=== PATIENT | male | born 1960 | race Caucasian/White ===

== ENCOUNTER → 2017-08-12 | Outpatient (CLI) | payer BC | END | disposition home or self-care (01) | LOC: LABWHC1 11:37 | PROVIDERS: ATTEND Psychiatry & Neurology Neurology | DX: G40.209 Localization-related (focal) (partial) symptomatic epilepsy and epileptic syndromes with complex partial seizures, not intractable, without status epilepticus (principal) | CPT/HCPCS: 36415; 80185 ==

== ENCOUNTER → 2018-03-03 | Outpatient (CLI) | payer BC | LOC: LABWHC1 09:19 | PROVIDERS: ATTEND Psychiatry & Neurology Neurology | DX: G40.909 Epilepsy, unspecified, not intractable, without status epilepticus (principal) | CPT/HCPCS: 36415; 80185; 82306 ==

== ENCOUNTER → 2018-07-28 | Outpatient (CLI) | payer BC | END | disposition home or self-care (01) | LOC: LABWHC1 09:02 | PROVIDERS: ATTEND Psychiatry & Neurology Neurology | DX: G40.209 Localization-related (focal) (partial) symptomatic epilepsy and epileptic syndromes with complex partial seizures, not intractable, without status epilepticus (principal) | CPT/HCPCS: 36415; 80185 ==

== ENCOUNTER → 2020-08-06 | Outpatient (CLI) | payer BC | END | disposition home or self-care (01) | LOC: LABWHC1 07:47 | PROVIDERS: ATTEND Psychiatry & Neurology Neurology | DX: G40.209 Localization-related (focal) (partial) symptomatic epilepsy and epileptic syndromes with complex partial seizures, not intractable, without status epilepticus (principal) | CPT/HCPCS: 36415; 80185 ==

== ENCOUNTER → 2021-06-23 | Outpatient (CLI) | payer BC | END | disposition home or self-care (01) | LOC: LABWHC1 09:16 | PROVIDERS: ATTEND Psychiatry & Neurology Neurology | DX: G40.209 Localization-related (focal) (partial) symptomatic epilepsy and epileptic syndromes with complex partial seizures, not intractable, without status epilepticus (principal) | CPT/HCPCS: 36415; 80185 ==

== ENCOUNTER 2021-09-08 12:59 | Emergency (ER) | payer BC ==
[2021-09-08] MEDS ORDERED: SODIUM CHLORIDE 0.9% 1,000 ML IV STA (13:45)
--- NOTE | 2021-09-08 13:49 | ED ---
General Adult HPI - General Chief complaint: Dizziness Stated complaint: Dizziness Time Seen by Provider: 09/08/21 13:17 Source: patient, RN notes reviewed, old records reviewed Mode of arrival: ambulatory Limitations: no limitations - History of Present Illness Initial comments: 61-year-old male presenting for evaluation of what he reports as dizziness which has been present for the past 2 days. This began with wakening on Monday morning. He denied limb weakness or numbness. Denied cough or fever. He states he has been eating and drinking well. He was seen by his primary care physician and sent to the emergency department for evaluation. He states that his head felt heavy and that his balance was off. - Related Data Home Medications Medication Instructions Recorded Confirmed Fenofibrate 54 mg PO DAILY 08/28/13 09/08/21 Phenytoin Sodium Extended 400 mg PO DAILY 08/28/13 09/08/21 [Dilantin] Ginkgo Biloba [place] Extract [Ginkgo] 60 mg PO DAILY 05/07/15 09/08/21 Tamsulosin HCl [Flomax] 0.4 mg PO DAILY 05/07/15 09/08/21 Atorvastatin [Lipitor] 20 mg PO HS 09/08/21 09/08/21 Cholecalciferol (Vitamin D3) 125 mcg PO DAILY 09/08/21 09/08/21 [Vitamin D3 (125 MCG = 5,000 IU)] Phenytoin Chew [Dilantin Chew] 50 mg PO DAILY 09/08/21 09/08/21 Allergies Allergy/AdvReac Type Severity Reaction Status Date / Time Penicillins Allergy Rash/Hives Verified 09/08/21 14:35 Review of Systems ROS Statement: Those systems with pertinent positive or pertinent negative responses have been documented in the HPI. ROS Other: All systems not noted in ROS Statement are negative. Past Medical History Past Medical History: Cancer, Hyperlipidemia, Prostate Disorder, Seizure Disorder Additional Past Medical History / Comment(s): bladder cancer, last seizure 25 yrs ago, macular degeneration History of Any Multi-Drug Resistant Organisms: None Reported Past Surgical History: Adenoidectomy, Orthopedic Surgery, Tonsillectomy Additional Past Surgical History / Comment(s): 1980 left shoulder surgery, 2012 bladder surgery d/t CA Past Anesthesia/Blood Transfusion Reactions: No Reported Reaction Past Psychological History: No Psychological Hx Reported Smoking Status: Former smoker Past Alcohol Use History: Occasional Past Drug Use History: None Reported - Past Family History Father Family Medical History: Congestive Heart Failure (CHF), COPD, Myocardial Infarction ([place]) Additional Family Medical History / Comment(s): smoker Mother Family Medical History: Cancer Additional Family Medical History / Comment(s): bladder CA & subsequent suspension General Exam Limitations: no limitations General appearance: alert, in no apparent distress Head exam: Present: atraumatic, normocephalic Eye exam: Present: normal appearance, PERRL ENT exam: Present: mucous membranes dry Neck exam: Present: normal inspection. Absent: tenderness, meningismus Respiratory exam: Present: normal lung sounds bilaterally. Absent: respiratory distress, wheezes Cardiovascular Exam: Present: regular rate, normal rhythm GI/Abdominal exam: Present: soft. Absent: distended, tenderness, guarding, rebound Extremities exam: Present: normal inspection, normal capillary refill. Absent: pedal edema, calf tenderness Neurological exam: Present: alert, oriented X3, CN II-XII intact, other (No ataxia, normal [id number] bilaterally, normal flld-[id number]-lhgd bilaterally, normal strength throughout). Absent: motor sensory deficit Psychiatric exam: Present: normal affect, normal mood Skin exam: Present: warm, dry, intact. 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 ] Respiratory 18 18 18 Rate Blood Pressure 137/93 132/85 Blood Pressure [Right Radial Artery Sitting] Blood Pressure [Right Radial Artery Standing ] Blood Pressure [Right Radial Artery Supine] O2 Sat by Pulse 97 Oximetry 09/08/21 09/08/21 09/08/21 14:26 14:27 14:28 Temperature Pulse Rate Pulse Rate [ 80 85 84 Pony Ride Operator ] Respiratory 18 18 18 Rate Blood Pressure Blood Pressure 144/97 [Right Radial Artery Sitting] Blood Pressure 130/90 [Right Radial Artery Standing ] Blood Pressure 137/85 [Right Radial Artery Supine] O2 Sat by Pulse Oximetry EKG Findings - EKG Comments: EKG Findings:: EKG: Sinus rhythm, rate of 85, PA interval 200, QRS duration 101, QTC 434, no ST segment elevation. Medical Decision Making - Medical Decision Making 61-year-old male presents with chief complaint of dizziness and lightheadedness. Studies seemed to at least in part be related to standing. He is well- appearing with stable vitals. He has dry mucous membranes. He has a completely normal neurologic exam including normal finger to nose bilaterally, negative Rom loredo, NIH of 0 with normal strength throughout. His workup is essentially unremarkable, normal CBC, normal CMP, negative head CT. We did discuss the possibilities at length and ultimately agreed upon discharge with strict return parameters. He should follow-up with his primary care physician. He is instructed to return immediately to the emergency department with the development of any focal weakness or numbness. Headache. Chest pain. - Lab Data Result diagrams: 09/08/21 14:11 09/08/21 14:11 Lab Results 09/08/21 09/08/21 09/08/21 Range/Units 14:11 14:11 14:11 WBC 4.3 (3.8-10.6) k/uL RBC 4.83 (4.30-5.90) m/uL Hgb 15.7 (13.0-17.5) gm/dL Hct 45.3 (39.0-53.0) % MCV 93.7 (80.0-100.0) fL MCH 32.5 (25.0-35.0) pg MCHC 34.7 (31.0-37.0) g/dL RDW 13.5 (11.5-15.5) % Plt Count 167 (150-450) k/uL MPV 8.0 Neutrophils % 58 % Lymphocytes % 24 % Monocytes % 8 % Eosinophils % 5 % Basophils % 1 % Neutrophils # 2.5 (1.3-7.7) k/uL Lymphocytes # 1.0 (1.0-4.8) k/uL Monocytes # 0.3 (0-1.0) k/uL Eosinophils # 0.2 (0-0.7) k/uL Basophils # 0.1 (0-0.2) k/uL PT 11.0 (9.0-12.0) sec INR 1.0 (<1.2) APTT 25.2 (22.0-30.0) sec Sodium (137-145) mmol/L Potassium (3.5-5.1) mmol/L Chloride (98-107) mmol/L Carbon Dioxide (22-30) mmol/L Anion Gap mmol/L BUN (9-20) mg/dL Creatinine (0.66-1.25) mg/dL Est GFR (CKD-EPI)AfAm (>60 ml/min/1.73 sqM) Est GFR (CKD-EPI)NonAf (>60 ml/min/1.73 sqM) Glucose (74-99) mg/dL Calcium (8.4-10.2) mg/dL Magnesium (1.6-2.3) mg/dL Total Bilirubin (0.2-1.3) mg/dL AST (17-59) U/L ALT (4-49) U/L Alkaline Phosphatase (38-126) U/L Troponin I (0.000-0.034) ng/mL Total Protein (6.3-8.2) g/dL Albumin (3.5-5.0) g/dL Urine Color Light Yellow Urine Appearance Clear (Clear) Urine pH 5.5 (5.0-8.0) Ur Specific [place] 1.013 (1.001-1.035) Urine Protein Negative (Negative) Urine Glucose (UA) Negative (Negative) Urine Ketones Negative (Negative) Urine Blood Negative (Negative) Urine Nitrite Negative (Negative) Urine Bilirubin Negative (Negative) Urine Urobilinogen <2.0 (<2.0) mg/dL Ur Leukocyte Esterase Negative (Negative) 09/08/21 09/08/21 Range/Units 14:11 14:11 WBC (3.8-10.6) k/uL RBC (4.30-5.90) m/uL Hgb (13.0-17.5) gm/dL Hct (39.0-53.0) % MCV (80.0-100.0) fL MCH (25.0-35.0) pg MCHC (31.0-37.0) g/dL RDW (11.5-15.5) % Plt Count (150-450) k/uL MPV Neutrophils % % Lymphocytes % % Monocytes % % Eosinophils % % Basophils % % Neutrophils # (1.3-7.7) k/uL Lymphocytes # (1.0-4.8) k/uL Monocytes # (0-1.0) k/uL Eosinophils # (0-0.7) k/uL Basophils # (0-0.2) k/uL PT (9.0-12.0) sec INR (<1.2) APTT (22.0-30.0) sec Sodium 136 L (137-145) mmol/L Potassium 4.6 (3.5-5.1) mmol/L Chloride 102 (98-107) mmol/L Carbon Dioxide 26 (22-30) mmol/L Anion Gap 8 mmol/L BUN 28 H (9-20) mg/dL Creatinine 0.88 (0.66-1.25) mg/dL Est GFR (CKD-EPI)AfAm >90 (>60 ml/min/1.73 sqM) Est GFR (CKD-EPI)NonAf >90 (>60 ml/min/1.73 sqM) Glucose 96 (74-99) mg/dL Calcium 9.4 (8.4-10.2) mg/dL Magnesium 2.1 (1.6-2.3) mg/dL Total Bilirubin 0.4 (0.2-1.3) mg/dL AST 31 (17-59) U/L ALT 25 (4-49) U/L Alkaline Phosphatase 82 (38-126) U/L Troponin I <0.012 (0.000-0.034) ng/mL Total Protein 7.4 (6.3-8.2) g/dL Albumin 4.6 (3.5-5.0) g/dL Urine Color Urine Appearance (Clear) Urine pH (5.0-8.0) Ur Specific [place]ony (1.001-1.035) Urine Protein (Negative) Urine Glucose (UA) (Negative) Urine Ketones (Negative) Urine Blood (Negative) Urine Nitrite (Negative) Urine Bilirubin (Negative) Urine Urobilinogen (<2.0) mg/dL Ur Leukocyte Esterase (Negative) Disposition Clinical Impression: Dizziness Disposition: HOME SELF-CARE Condition: Good Instructions (If sedation given, give patient instructions): Dizziness (ED) Is patient prescribed a controlled substance at d/c from ED?: No Referrals: Елена Morales MD [Primary Care Provider] - 1-2 days Time of Disposition: 16:13
[2021-09-08 14:29] LABS: Basophils # (A) 0.1 k/uL (0-0.2); Basophils % (A) 1 %; Eosinophils # (A) 0.2 k/uL (0-0.7); Eosinophils % (A) 5 %; HCT 45.3 % (39.0-53.0); HGB 15.7 gm/dL (13.0-17.5); Lymphocytes % (A) 24 %; MCH 32.5 pg (25.0-35.0); MCHC 34.7 g/dL (31.0-37.0); MCV 93.7 fL (80.0-100.0); Monocytes # (A) 0.3 k/uL (0-1.0); Monocytes % (A) 8 %; Neutrophils # (A) 2.5 k/uL (1.3-7.7); Neutrophils % (A) 58 %; Platelet Count 167 k/uL (150-450); RBC 4.83 m/uL (4.30-5.90); RDW 13.5 % (11.5-15.5); WBC 4.3 k/uL (3.8-10.6)
[2021-09-08 14:38] LABS: ALT 25 U/L (4-49); AST 31 U/L (17-59); African American GFR (CKD) >90 (>60 ml/min/1.73 sqM); Albumin 4.6 g/dL (3.5-5.0); Alkaline Phosphatase 82 U/L (38-126); Anion Gap 8 mmol/L; Blood Urea Nitrogen 28 mg/dL (9-20); Calcium 9.4 mg/dL (8.4-10.2); Carbon Dioxide 26 mmol/L (22-30); Chloride 102 mmol/L (98-107); Glucose 96 mg/dL (74-99); Magnesium 2.1 mg/dL (1.6-2.3); Non-African American GFR(CKD) >90 (>60 ml/min/1.73 sqM); Sodium 136 mmol/L (137-145); Total Bilirubin 0.4 mg/dL (0.2-1.3); Total Protein 7.4 g/dL (6.3-8.2)
[2021-09-08 14:41] LABS: Partial Thromboplastin Time 25.2 sec (22.0-30.0)
[2021-09-08 14:52] LABS: Potassium 4.6 mmol/L (3.5-5.1)
--- NOTE | 2021-09-08 15:57 | CT ---
EXAMINATION TYPE: CT brain wo con DATE OF EXAM: 09/08/2021 COMPARISON: Unavailable HISTORY: Weakness CT DLP: 1099.4 mGycm Automated exposure control for dose reduction was used. TECHNIQUE: CT scan of the brain is performed without IV contrast administration. FINDINGS: No acute intracranial hemorrhage. No gross acute cortical infarct. No midline shift, herniation or ve ntriculomegaly. Unremarkable avery-white matter differentiation, basal cisterns, sella and CP angles. No gross space-o ccupying lesion, vasogenic edema or mass effect. Unremarkable orbits. Left maxillary sinus polyp/retention cyst. Clear mastoid air cells. Unremarkable calvarial bones. IMPRESSION: No acute intracranial abnormality or gross space-occupying lesion by this nonenhanced CT scan.
[2021-09-08 16:17] LABS: Appearance,Urine Clear (Clear); Bilirubin,Urine Negative (Negative); Blood,Urine Negative (Negative); Color,Urine Light Yellow; Glucose,Urine (UA) Negative (Negative); Ketones,Urine Negative (Negative); Leukocyte Esterase,Urine Negative (Negative); Nitrite,Urine Negative (Negative); PH, Urine 5.5 (5.0-8.0); Protein,Urine Negative (Negative); Specific Gravity,Urine 1.013 (1.001-1.035); Urobilinogen,Urine <2.0 mg/dL (<2.0)
[2021-09-08 16:55] VITALS: BP 143/84; PULSE 78; RESP 17; TEMP 97.1
== END 2021-09-08 16:53 | disposition home or self-care (01) ==
LOC: EC 12:59
DX: R42 Dizziness and giddiness (principal); E78.5 Hyperlipidemia, unspecified; Z87.891 Personal history of nicotine dependence; Z79.899 Other long term (current) drug therapy; Z88.0 Allergy status to penicillin
CPT/HCPCS: 36415; 70450; 80053; 81003; 83735; 84484; 85025; 85610; 85730; 93005; 96360; 96361; 99284

== ENCOUNTER → 2021-09-10 | Outpatient (CLI) | payer BC | END | disposition home or self-care (01) | LOC: LABWHC1 14:25 | PROVIDERS: ATTEND Psychiatry & Neurology Neurology | DX: G40.209 Localization-related (focal) (partial) symptomatic epilepsy and epileptic syndromes with complex partial seizures, not intractable, without status epilepticus (principal) | CPT/HCPCS: 36415; 80185 ==

== ENCOUNTER → 2021-09-16 | Outpatient (CLI) | payer BC | END | disposition home or self-care (01) | LOC: LABWHC1 09:07 | PROVIDERS: ATTEND Psychiatry & Neurology Neurology | DX: G40.209 Localization-related (focal) (partial) symptomatic epilepsy and epileptic syndromes with complex partial seizures, not intractable, without status epilepticus (principal) | CPT/HCPCS: 36415; 80185 ==

== ENCOUNTER → 2021-10-02 | Outpatient (CLI) | payer BC | END | disposition home or self-care (01) | LOC: LABWHC1 09:46 | PROVIDERS: ATTEND Psychiatry & Neurology Neurology | DX: G40.209 Localization-related (focal) (partial) symptomatic epilepsy and epileptic syndromes with complex partial seizures, not intractable, without status epilepticus (principal) | CPT/HCPCS: 36415; 80185 ==

== ENCOUNTER → 2022-01-08 | Outpatient (CLI) | payer BC ==
[2022-01-08 11:26] LABS: Phenytoin (Dilantin) 12.3 ug/mL
[2022-01-09 00:14] LABS: Prostate Specific Antigen 0.7 ng/mL (0.00-4.50)
== END | disposition home or self-care (01) ==
LOC: LABWHC1 09:57
PROVIDERS: ATTEND Urology
DX: G40.209 Localization-related (focal) (partial) symptomatic epilepsy and epileptic syndromes with complex partial seizures, not intractable, without status epilepticus (principal); R35.0 Frequency of micturition
CPT/HCPCS: 36415; 80185; 84153

== ENCOUNTER 2023-01-10 13:02 | Day surgery (SDC) | payer BC ==
[2023-01-06 10:08] VITALS: BMI 25.8
[~2023-01-10 13:02] MED LIST: LACTATED RINGERS 1,000 ML IV SCH; LIDOCAINE 1% (10MG/ML) FOR IV START INTRADERMA PRN
[2023-01-10] MEDS ORDERED: LACTATED RINGERS 1,000 ML IV ONE (13:19)
[2023-01-10] MEDS ORDERED: LIDOCAINE 1% INJ 10MG/ML (20 ML MDV) ONE (13:44)
[2023-01-10] MEDS ORDERED: PROPOFOL 10 MG/ML 20 ML VIAL IV ONE (13:44)
[2023-01-10 13:45] VITALS: TEMP 97.2
--- NOTE | 2023-01-10 13:45 | P.GSHP ---
History of Present Illness H&P Date: 01/10/23 Chief Complaint: Dysphagia 62-year-old male here for EGD. Patient with complaints of dysphagia. Seems to be both liquids and solids. Mild heartburn. Past Medical History Past Medical History: Cancer, Hyperlipidemia, Prostate Disorder, Seizure Disorder Additional Past Medical History / Comment(s): bladder cancer, 2013 last seizure 35 yrs ago, macular degeneration right eye History of Any Multi-Drug Resistant Organisms: None Reported Past Surgical History: Adenoidectomy, Orthopedic Surgery, Tonsillectomy Additional Past Surgical History / Comment(s): 1980 left shoulder surgery and another shoulder surgery 07/2022, 2012 bladder surgery d/t CA cataracts removed apr 1404/2022 Past Anesthesia/Blood Transfusion Reactions: No Reported Reaction Additional Past Anesthesia/Blood Transfusion Reaction / Comment(s): no blood transfusion Smoking Status: Former smoker - Past Family History Father Family Medical History: Congestive Heart Failure (CHF), COPD, Myocardial Infarction ([place]) Additional Family Medical History / Comment(s): smoker Mother Family Medical History: Cancer Additional Family Medical History / Comment(s): bladder CA & subsequent suspension Medications and Allergies Home Medications Medication Instructions Recorded Confirmed Type Fenofibrate 54 mg PO DAILY 08/28/13 01/06/23 History Phenytoin Sodium Extended 400 mg PO DAILY 08/28/13 01/06/23 History [Dilantin] Ginkgo Biloba [place] Extract [Ginkgo] 60 mg PO DAILY 05/07/15 01/06/23 History Tamsulosin HCl [Flomax] 0.4 mg PO DAILY 05/07/15 01/06/23 History Atorvastatin [Lipitor] 20 mg PO HS 09/08/21 01/06/23 History Cholecalciferol (Vitamin D3) 125 mcg PO DAILY 09/08/21 01/06/23 History [Vitamin D3 (125 MCG = 5,000 IU)] Omeprazole 40 mg PO BID 01/06/23 01/06/23 History Allergies Allergy/AdvReac Type Severity Reaction Status Date / Time Penicillins Allergy Rash/Hives Verified 01/06/23 09:56 Surgical - Exam Vital Signs Temp Pulse Resp BP Pulse Ox 97.2 F L 78 18 127/78 100 01/10/23 13:29 01/10/23 13:29 01/10/23 13:29 01/10/23 13:29 01/10/23 13:29 Physical exam: General: Well-developed, well-nourished HEENT: Normocephalic, sclerae nonicteric Abdomen: Nontender, nondistended Extremities: No edema Neuro: Alert and oriented Assessment and Plan (1) Dysphagia Narrative/Plan: Will proceed with EGD with biopsy and possible dilation Current Visit: Yes Status: Acute Code(s): R13.10 - DYSPHAGIA, UNSPECIFIED SNOMED Code(s): 11521474
--- NOTE | 2023-01-10 14:00 | P.PCN ---
Date of Procedure: 01/10/23 Procedure(s) Performed: Preoperative Dx: Dysphagia Postoperative Dx: Esophageal mass Procedure: EGD with Bx Anesthesia: Sedation Endoscopist: Dr. Aldridge Specimens: Antrum, esophageal mass Endoscopic Procedure: The patient was on the endoscopy table in the left decubitus position. The Olympus gastroscope was inserted into the oropharynx and passed under direct visualization to the mid esophagus. With are normal size gastroscope a mass was encountered starting around 32 cm. This was ulcerated and causing luminal narrowing. This was circumferential. This was friable with some bleeding noted. There was some particulate matter proximal to the mass. We switched then to the smaller gastroscope measuring 9.2 mm. We were able to advance into the stomach and duodenum at that time. From that point the scope was slowly withdrawn inspecting all surfaces carefully. There were no neoplastic inflammatory or polypoid lesions throughout the duodenum. The pylorus was widely patent. The stomach was carefully inspected. There was minimal gastritis. A biopsy of the antrum took place to rule out H. pylori. Retroflexion revealed a mass extending 1 cm beyond the GE junction. Multiple biopsies of the mass took place. Again this is thought to measure approximately 8-9 cm in length. The proximal one half of the esophagus appeared normal. The patient was then taken to the recovery room in stable condition per anesthesia guidelines. Recommendations: Await biopsy results. Will discuss findings with patient. We'll make referral to oncology.
[2023-01-10 14:33] VITALS: BP 121/77; PULSE 72; RESP 20
== END 2023-01-10 14:59 | disposition home or self-care (01) ==
LOC: ORWHC2ENDO 13:02
PROVIDERS: ATTEND Surgery
DX: K22.9 Disease of esophagus, unspecified (principal); E78.5 Hyperlipidemia, unspecified; K21.9 Gastro-esophageal reflux disease without esophagitis; G40.89 Other seizures; Z98.890 Other specified postprocedural states; Z87.891 Personal history of nicotine dependence; Z88.0 Allergy status to penicillin; Z79.899 Other long term (current) drug therapy; Z79.83 Long term (current) use of bisphosphonates
CPT/HCPCS: 88305; 88342; 43239; J2001; J2704

== ENCOUNTER → 2023-01-19 | Outpatient (CLI) | payer BC ==
--- NOTE | 2023-01-19 21:51 | CT ---
EXAMINATION TYPE: CT ChestAbdPelvis w con DATE OF EXAM: 01/19/2023 INDICATION: esophageal mass hx of bladder CA COMPARISON: 07/28/2013 CT DLP: 1580 mGycm CONTRAST: Performed with Oral Contrast and with IV Contrast, patient injected with 100 mL of Isovue 300. TECHNIQUE: Axial images at 5 mm thick sections. Reconstructed images in the coronal plane. Delayed images through the kidneys. FINDINGS: CT CHEST: Portion of the thyroid visualized is normal. Esophagus is dilated and has an air-fluid level. There is diffuse thickening at the distal esophagus in the thorax extending into the gastroesophageal junction compatible with the patient's reported eso phageal cancer. No suspicious lung nodules or focal infiltrates are present. No enlarged mediastinal or hilar adenopathy is evident. Shotty lymphadenopathy is present. The ascending aorta diameter at the level of the main pulmonary artery is 3.3 cm. The main pulmonary artery diameter at the bifurcation is 2.[address] ABDOMEN: Liver: Hepatic cyst is at the superior medial right lobe liver measuring 1.3 cm and 6 Hounsfield unit s. There is a subtle hypodensity within the periphery of the right lobe liver, series 3 image 60. Thi s is indeterminate. Pair of cysts may be at the inferior right lobe liver. Spleen: Normal Pancreas: Normal Adrenal glands: The adrenal glands are normal. Gallbladder: Decompressed Kidneys: No masses are evident. No hydronephrosis is present. There is a 4.1 cm cyst on posterior l ateral left mid kidney. 0.8 cm cortical renal cysts on the posterior right mid kidney Delayed images were obtained through the kidneys, which remain unremarkable. Aorta: Vascular calcification is within the aorta. Inferior vena cava: Normal. CT PELVIS: Loops of bowel within the abdomen and pelvis are normal. There are loops of bowel which are incom pletely distended or lack oral contrast limiting their evaluation. Appendix: Normal as visualized. Urinary bladder: Appears normal. Patient's reported bladder neoplasm not clearly identified on the ba sis of this examination. Genitourinary structures: Prostate is slightly prominent. Osseous structures: No suspicious lytic or sclerotic lesions. IMPRESSION: 1. Marked esophageal prominence at the distal esophagus compatible with the patient's reported neopla sm. 2. Patient's reported urinary bladder cancer not identified on the basis of this examination. 3. No suspicious abnormality to suggest metastatic disease. There are some small hypodensities within the liver, metastatic disease is not entirely excluded. Hepatic cysts however are evident within the liver in addition to the small indeterminate hypodense areas. 4. Renal cysts.
== END | disposition home or self-care (01) ==
LOC: RADCTMAIN 11:42
PROVIDERS: ATTEND Surgery
DX: D13.0 Benign neoplasm of esophagus (principal); K76.89 Other specified diseases of liver; N28.1 Cyst of kidney, acquired; Z85.51 Personal history of malignant neoplasm of bladder
CPT/HCPCS: 71260; 74177; Q9967

== ENCOUNTER → 2023-01-26 | Outpatient (CLI) | payer BC ==
--- NOTE | 2023-01-28 19:26 | PE ---
EXAMINATION TYPE: PET CT fusion skull to thigh DATE OF EXAM: 01/26/2023 CLINICAL INDICATION:Male, 62 years old with history of C15.5 ESOPHAGEAL CANCER; TECHNIQUE: Following the intravenous administration of 10.6 mCi of F-18 FDG, whole body images are performed from the skull base to the midthigh. Images are reviewed on the computer in the coronal, a xial, and sagittal planes. Reconstructed rotating images are created on independent workstation and reviewed on the computer. A non-contrast CT is performed in conjunction with the PET scan. Glucose level 80 mg/dL CT DLP: 445 mGycm, Automated exposure control for dose reduction was used. COMPARISON: CT 01/19/2023, 07/28/2013., PET/CT None, FINDINGS: Mediastinal SUV mean is 1.7. Hepatic parenchyma SUV mean is 2.8. SKULL BASE AND NECK: No suspicious radiotracer activity. CHEST, MEDIASTINUM, AND HILAR REGION: No suspicious radiotracer activity. ABDOMEN AND PELVIS: * Left pulmonary hilum lymph node max SUV 4.1. Measurements are difficult without IV contrast. * Distal esophageal wall thickening with extension into the gastric wall max SUV 18.7. Measurements of wall thickening are difficult given lack of IV and oral contrast. * Gastrohepatic ligament lymph node max SUV 9.8 measuring 17 mm. MUSCULOSKELETAL STRUCTURES: No suspicious radiotracer activity. OTHER CT: Bilaterally aphakia. Atherosclerosis of the arterial vascular. Patulous esophagus with laye ring ingested contents. Mild coronary artery atherosclerosis. Calcified right pulmonary hilum lymph n ode. Simple left renal cyst. Simple appearing hepatic cysts. Small hiatal hernia. Large amount stool throughout colon. 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 There is an indeterminate left pulmonary hilum lymph node with mild uptake. These findings results in partial obstruction of the esophagus with lay ering debris in the setting esophagus.
== END | disposition home or self-care (01) ==
LOC: RADPETMAIN 15:27
PROVIDERS: ATTEND Internal Medicine Hematology & Oncology
DX: C15.5 Malignant neoplasm of lower third of esophagus (principal)
CPT/HCPCS: 78815; A9552

== ENCOUNTER 2023-02-10 09:49 | Day surgery (SDC) | payer BC ==
[2023-02-09 08:51] VITALS: BMI 26.1
[~2023-02-10 09:49] MED LIST changes: +ACETAMINOPHEN TAB 500 MG TAB PO PRN; +HEPARIN SODIUM,PORCINE/PF 5,000 UNIT/0.5 ML SYRINGE SQ PRN; -LACTATED RINGERS 1,000 ML IV SCH; -LIDOCAINE 1% (10MG/ML) FOR IV START INTRADERMA PRN; +Pre Op ABX Message 1 EACH MISC MISCELLANE ONE
[2023-02-10] MEDS ORDERED: LACTATED RINGERS 1,000 ML IV ONE (10:43)
[2023-02-10] MEDS ORDERED: ONDANSETRON 4 MG/2 ML VIAL ONE (10:46)
[2023-02-10] MEDS ORDERED: ONDANSETRON 4 MG/2 ML VIAL IVP ONE (10:49)
[2023-02-10] MEDS ORDERED: DEXAMETHASONE SOD PHOSPHATE 4 MG/ML 1 ML VIAL IVP ONE (10:50)
--- NOTE | 2023-02-10 11:09 | P.GSHP ---
History of Present Illness H&P Date: 02/10/23 Chief Complaint: Esophageal cancer 62-year-old male here today for Port-A-Cath placement. Patient with recent diagnosis of esophageal cancer. Beginning therapy next week. No history of previous ports. Past Medical History Past Medical History: Cancer, GERD/Reflux, Hyperlipidemia, Prostate Disorder, Seizure Disorder Additional Past Medical History / Comment(s): bladder cancer 2013 .,last seizure 35 yrs ago, macular degeneration right eye, bph., constipation, new diagnosis of esophageal cancer., dysphagia. History of Any Multi-Drug Resistant Organisms: None Reported Past Surgical History: Adenoidectomy, Bladder Surgery, Orthopedic Surgery, Tonsillectomy Additional Past Surgical History / Comment(s): 1980 left shoulder surgery and another shoulder surgery 07/2022, 2012 bladder surgery d/t CA ., cataracts, EGD Past Anesthesia/Blood Transfusion Reactions: No Reported Reaction Additional Past Anesthesia/Blood Transfusion Reaction / Comment(s): no blood transfusion Past Psychological History: No Psychological Hx Reported Smoking Status: Former smoker Past Alcohol Use History: Rare Additional Past Alcohol Use History / Comment(s): quit smoking 2007 1.5 ppd Past Drug Use History: None Reported - Past Family History Father Family Medical History: Congestive Heart Failure (CHF), COPD, Myocardial Infarction ([place]) Additional Family Medical History / Comment(s): smoker Brother(s) Additional Family Medical History / Comment(s): aneurysm Mother Family Medical History: Cancer Additional Family Medical History / Comment(s): bladder CA & subsequent suspension. aneurysm Medications and Allergies Home Medications Medication Instructions Recorded Confirmed Type Phenytoin Sodium Extended 400 mg PO DAILY 08/28/13 02/10/23 History [Dilantin] RX: Fenofibrate 54 mg PO HS 08/28/13 02/10/23 History Tamsulosin HCl [Flomax] 0.4 mg PO HS 05/07/15 02/10/23 History Atorvastatin [Lipitor] 20 mg PO HS 09/08/21 02/10/23 History Allergies Allergy/AdvReac Type Severity Reaction Status Date / Time Penicillins Allergy Rash/Hives Verified 02/10/23 10:18 Surgical - Exam Vital Signs Temp Pulse Resp BP Pulse Ox 97.6 F 98 14 123/76 98 02/10/23 10:23 02/10/23 10:23 02/10/23 10:23 02/10/23 10:23 02/10/23 10:23 Physical exam: General: Well-developed, well-nourished HEENT: Normocephalic, sclerae nonicteric Abdomen: Nontender, nondistended Extremities: No edema Neuro: Alert and oriented Assessment and Plan (1) Esophageal cancer Narrative/Plan: 62-year-old male with recent diagnosis of esophageal cancer. We'll proceed with Port-A-Cath placement at this time. Risks of bleeding, infection, DVT, pneumothorax, catheter malfunction, anesthesia related complications were discussed. The patient understands and wishes to proceed. Current Visit: Yes Status: Acute Code(s): C15.9 - MALIGNANT NEOPLASM OF ESOPHAGUS, UNSPECIFIED SNOMED Code(s): 933132987
[2023-02-10] MEDS ORDERED: PROPOFOL 10 MG/ML 20 ML VIAL IV ONE (11:22)
[2023-02-10] MEDS ORDERED: MIDAZOLAM 2 MG/2 ML VIAL ONE (11:22)
[2023-02-10] MEDS ORDERED: LIDOCAINE 1% INJ 10MG/ML (20 ML MDV) ONE (11:22)
[2023-02-10] MEDS ORDERED: SUCCINYLCHOLINE CHLORIDE 200 MG/10 ML VIAL IV ONE (11:22)
[2023-02-10] MEDS ORDERED: fentaNYL (PF) 50 MCG/ML 2 ML AMP ONE (11:22)
[2023-02-10] MEDS ORDERED: SODIUM CHLORIDE 0.9% 50 ML with ceFAZolin 2,000 MG IV ONE ×2 (11:27)
[2023-02-10] MEDS ORDERED: LIDOCAINE 1% INJ 10MG/ML (20 ML MDV) SQ ONE ×2 (11:50)
[2023-02-10] MEDS ORDERED: NALOXONE 0.4 MG/ML 1 ML VIAL IV PRN (12:24)
[2023-02-10] MEDS ORDERED: ACETAMINOPHEN TAB 325 MG TAB PO PRN (12:24)
--- NOTE | 2023-02-10 12:26 | P.OP ---
Date of Procedure: 02/10/23 Procedure(s) Performed: PREOPERATIVE DIAGNOSIS: Esophageal cancer POSTOPERATIVE DIAGNOSIS: Same PROCEDURE: Port-A-Cath placement with fluoroscopic and ultrasound guidance SURGEON: Oly EBL: 5 Ayaka ANESTHESIA: Gen. COMPLICATIONS: None OPERATIVE PROCEDURE: Patient was brought and placed on the operative table in the supine position. The patient was placed under general anesthesia at that time. The chest and neck were prepped and draped in usual sterile fashion. The ultrasound probe was used to identify the location of the right internal jugular vein. The skin was localized with lidocaine. The Seldinger needle was advanced into the IJ under ultrasound guidance. The wire was advanced through the needle under fluoroscopic guidance into the superior vena cava. A port pocket was created in the right infraclavicular location. The catheter was tunneled from the wire entrance site to the port pocket. The port was then connected to the catheter. The dilator introducer was threaded over the guidewire. The guidewire and dilator were then removed. The catheter was advanced through the introducer and introducer was then removed. The tip was seen to be in the right atrial junction via fluoroscopy. A picture of the radiograph showing the tip of the catheter was taken. Port was flushed with both saline and a Hep-Lock solution. There was good flow both in and out of the port. The port was sutured in underlying tissues using 3-0 silk sutures. The subcutaneous tissues were reapproximated using 3-0 Vicryl sutures and the skin at both locations using 4-0 Monocryl sutures. Skin glue and sterile dressings then applied. DISPOSITION: Stable to recovery room
[2023-02-10 12:39] VITALS: TEMP 98.6
--- NOTE | 2023-02-10 12:43 | FL ---
EXAMINATION TYPE: FL guided central line placemt HISTORY: Fluoroscopy time Impression: 1. Fluoroscopy support provided to the referring physician.
--- NOTE | 2023-02-10 12:58 | XR ---
EXAMINATION TYPE: XR chest 1V confirm line [facility] DATE OF EXAM: 02/10/2023 COMPARISON: NONE HISTORY: Line placement. TECHNIQUE: Single frontal view of the chest is obtained. IMPRESSION: Right-sided Mediport has its catheter tip overlying the region of the atriocaval junction. The lungs are clear. The cardiac silhouette and pulmonary vessels are within normal limits.
[2023-02-10 13:57] VITALS: BP 133/86; PULSE 86; RESP 18
[2023-02-10] MEDS ORDERED: KETOROLAC 15 MG/ML 1 ML VIAL IVP SCH (18:00)
== END 2023-02-10 14:10 | disposition home or self-care (01) ==
LOC: OR 09:49
PROVIDERS: ATTEND Surgery
DX: C15.9 Malignant neoplasm of esophagus, unspecified (principal); E78.5 Hyperlipidemia, unspecified; K21.9 Gastro-esophageal reflux disease without esophagitis; N40.0 Benign prostatic hyperplasia without lower urinary tract symptoms; G40.909 Epilepsy, unspecified, not intractable, without status epilepticus; F10.90 Alcohol use, unspecified, uncomplicated; Z85.51 Personal history of malignant neoplasm of bladder; Z87.891 Personal history of nicotine dependence; Z88.0 Allergy status to penicillin
CPT/HCPCS: 77001; 36561; C1788; J2250; J0330; J1100; J2405; J0690; J2001; J3010; J1642; J2704; J1644

== ENCOUNTER → 2023-04-21 | Outpatient (CLI) | payer BC ==
--- NOTE | 2023-04-23 16:32 | PE ---
EXAMINATION TYPE: PET CT fusion skull to thigh DATE OF EXAM: 04/21/2023 COMPARISON: CT chest abdomen pelvis 01/19/2023 Prior PET/CT: 01/26/2023 HISTORY: Esophageal cancer TECHNIQUE: Following the intravenous administration of 10.26 mCi of F-18 FDG, whole body images are performed from the skull base to the midthigh. Images are reviewed on the computer in the coronal, a xial, and sagittal planes. Reconstructed rotating images are created on independent workstation and reviewed on the computer. A localization and attenuation correction CT is performed in conjunction with the PET scan. DLP: 595.95 mGycm SCAN: Subsequent Blood glucose: 126 mg/dL Average Mediastinum SUV: 1.87 Average Liver SUV: 3.2 FINDINGS: NECK: No abnormal uptake THORAX: No suspicious uptake. There may be some mild intermediate signal within small hilar lymph nodes. Uptake in the distal esophagus measures 3.84. ABDOMEN: No suspicious uptake PELVIS: No suspicious uptake OSSEOUS STRUCTURES: No suspicious uptake LOCALIZATION CT: Multiple small lymph nodes are scattered within the mediastinum. Mild coronary arter y calcification is present. Minimal pericardial effusion is present. There is some asymmetry of the d istal esophagus which can be compatible with patient's reported esophageal cancer. A cyst is on the p osterior lateral left kidney measuring 4 cm. COMPARISON: Previous uptake within the distal esophagus is diminished on the current exam. Prior smal l lymph node within the abdomen not identified with abnormal uptake on the current exam. IMPRESSION: 1. Diminished radiotracer within the distal esophagus at the patient's esophageal cancer region. 2. No suspicious changes to suggest metastatic disease. Previous suspected abdominal lymph node not i dentified currently
== END ==
LOC: RADPETMAIN 10:53
PROVIDERS: ATTEND Internal Medicine Hematology & Oncology
DX: C15.5 Malignant neoplasm of lower third of esophagus (principal)
CPT/HCPCS: 78815; A9552

== ENCOUNTER → 2023-05-20 | Outpatient (CLI) | payer BC | END | disposition home or self-care (01) | LOC: LABWHC1 08:43 | PROVIDERS: ATTEND Psychiatry & Neurology Neurology | DX: G40.209 Localization-related (focal) (partial) symptomatic epilepsy and epileptic syndromes with complex partial seizures, not intractable, without status epilepticus (principal) | CPT/HCPCS: 36415; 80185 ==

== ENCOUNTER → 2023-05-27 | Outpatient (CLI) | payer BC | END | disposition home or self-care (01) | LOC: LABWHC1 08:48 | PROVIDERS: ATTEND Psychiatry & Neurology Neurology | DX: G40.209 Localization-related (focal) (partial) symptomatic epilepsy and epileptic syndromes with complex partial seizures, not intractable, without status epilepticus (principal) | CPT/HCPCS: 36415; 80185 ==

== ENCOUNTER → 2023-06-30 | Outpatient (CLI) | payer BC | END | disposition home or self-care (01) | LOC: LABWHC1 09:25 | PROVIDERS: ATTEND Psychiatry & Neurology Neurology | DX: G40.209 Localization-related (focal) (partial) symptomatic epilepsy and epileptic syndromes with complex partial seizures, not intractable, without status epilepticus (principal) | CPT/HCPCS: 36415; 80185 ==

== ENCOUNTER → 2023-10-12 | Outpatient (CLI) | payer BC | END | disposition home or self-care (01) | LOC: LABWHC1 08:31 | PROVIDERS: ATTEND Urology | DX: C61 Malignant neoplasm of prostate (principal) | CPT/HCPCS: 36415; 84153 ==

== ENCOUNTER → 2023-10-12 | Outpatient (CLI) | payer BC ==
--- NOTE | 2023-10-12 12:34 | PE ---
EXAMINATION TYPE: PET CT fusion skull to thigh DATE OF EXAM: 10/12/2023 CLINICAL INDICATION:Male, 63 years old with history of C15.5 ESOPHAGEAL CANCER; TECHNIQUE: Following the intravenous administration of 12.76 mCi of F-18 FDG, whole body images are performed from the skull base to the midthigh. Images are reviewed on the computer in the coronal, axial, and sagittal planes. Reconstructed rotating images are created on independent workstation and reviewed on the computer. A non-contrast CT is performed in conjunction with the PET scan. Glucose level 142 mg/dL CT DLP: 518.92 mGycm, Automated exposure control for dose reduction was used. COMPARISON: CT None, PET/CT 04/21/2023, MRI: None FINDINGS: Mediastinal SUV mean is 2.1. Hepatic parenchyma SUV mean is 1.0. SKULL BASE AND NECK: No suspicious radiotracer activity. CHEST, MEDIASTINUM, AND HILAR REGION: No suspicious radiotracer activity. ABDOMEN AND PELVIS: * Distal esophagus FDG activity max SUV 4.5 previously 4.3. * Gastrohepatic ligament lymph node is decrease in FDG activity from the original PET scan on 2022. No enlarged lymph nodes in this region identified at this time. MUSCULOSKELETAL STRUCTURES: No suspicious radiotracer activity. OTHER CT: Atherosclerosis of the arterial vasculature. Right chest wall Rtpnac-i-Lspk catheter remain s superior vena cava. Atherosclerosis of the coronary arteries. Heart is mildly enlarged for size. Fe w scattered simple appearing hepatic cysts. Bilateral renal simple appearing renal cysts. IMPRESSION: Stable FDG activity in the distal esophagus given differences in technique. No evidence for lymphaden opathy or enlarged lymph nodes.
== END | disposition home or self-care (01) ==
LOC: RADPETMAIN 09:08
PROVIDERS: ATTEND Internal Medicine Hematology & Oncology
DX: C15.5 Malignant neoplasm of lower third of esophagus (principal)
CPT/HCPCS: 78815; A9552

== ENCOUNTER → 2024-02-15 | Outpatient (CLI) | payer BC ==
--- NOTE | 2024-02-18 11:37 | PE ---
EXAMINATION TYPE: PET CT fusion skull to thigh DATE OF EXAM: 02/15/2024 CLINICAL INDICATION:Male, 63 years old with history of C15.5 ESOPHAGEAL CANCER; TECHNIQUE: Following the intravenous administration of 10.94 mCi of F-18 FDG, whole body images are performed from the skull base to the midthigh. Images are reviewed on the computer in the coronal, axial, and sagittal planes. Reconstructed rotating images are created on independent workstation and reviewed on the computer. A non-contrast CT is performed in conjunction with the PET scan. Glucose level 92 mg/dL CT DLP: 642 mGycm, Automated exposure control for dose reduction was used. COMPARISON: CT None, PET/CT 10/12/2023, MRI: None FINDINGS: Mediastinal SUV mean is 1.9. Hepatic parenchyma SUV mean is 3.8. SKULL BASE AND NECK: No suspicious radiotracer activity. CHEST, MEDIASTINUM, AND HILAR REGION: No suspicious radiotracer activity. Uptake near the AP window is thought to have some misregistration artifact possibly within the wall o f the aorta. Max SUV 3.7. Lymph node nearby is not significantly changed from prior. ABDOMEN AND PELVIS: * Distal esophagus FDG activity max SUV 4.3, previously 4.5 4.3. * Gastrohepatic ligament remains without enlarged lymph nodes. MUSCULOSKELETAL STRUCTURES: No suspicious radiotracer activity. OTHER CT: Atherosclerosis of the arterial vasculature. Right chest wall Zqtqht-u-Oigq catheter remain s superior vena cava. Atherosclerosis of the coronary arteries. Heart is mildly enlarged for size. Fe w scattered simple appearing hepatic cysts. Bilateral renal simple appearing renal cysts. IMPRESSION: Stable FDG activity in the distal esophagus given differences in technique. No evidence for lymphaden opathy or enlarged lymph nodes. Focus of uptake in the AP window possibly misregistration artifact wi thin the wall of the aorta. Lymph node in this facility is not changed from prior [facility], , 02/18/2024 11:35 AM
== END | disposition home or self-care (01) ==
LOC: RADPETMAIN 11:12
PROVIDERS: ATTEND Internal Medicine Hematology & Oncology
DX: C15.5 Malignant neoplasm of lower third of esophagus (principal); N28.1 Cyst of kidney, acquired; K76.89 Other specified diseases of liver; I25.10 Atherosclerotic heart disease of native coronary artery without angina pectoris
CPT/HCPCS: 78815; A9552

== ENCOUNTER → 2024-03-02 | Outpatient (CLI) | payer BC | END | disposition home or self-care (01) | LOC: LABWHC1 09:36 | PROVIDERS: ATTEND Psychiatry & Neurology Neurology | DX: G40.209 Localization-related (focal) (partial) symptomatic epilepsy and epileptic syndromes with complex partial seizures, not intractable, without status epilepticus (principal) | CPT/HCPCS: 36415; 80185 ==

== ENCOUNTER → 2024-07-30 | Outpatient (CLI) | payer BC ==
[2024-07-30 10:07] LABS: African American GFR (CKD) 67 (>60 ml/min/1.73 sqM); Blood Urea Nitrogen 28 mg/dL (9-20); Non-African American GFR(CKD) 58 (>60 ml/min/1.73 sqM)
--- NOTE | 2024-07-30 15:03 | CT ---
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 CT DLP: 1184.60 mGycm. Automated Exposure Control for Dose Reduction was Utilized. FINDINGS: LUNGS: The lungs are grossly clear, there is no concerning parenchymal mass or nodule identified. T here is no pleural effusion or pneumothorax seen. The tracheobronchial tree is patent. HEART: Size within normal limits. Moderate coronary artery calcifications present. MEDIASTINUM: There are no greater than 1 cm hilar or mediastinal lymph nodes. No pericardial effusi on is seen. LIVER/GB: A few small simple appearing thin-walled cysts throughout the liver are redemonstrated. PANCREAS: No significant abnormality is seen. SPLEEN: No significant abnormality is seen. ADRENALS: No significant abnormality is seen. KIDNEYS:. A few thin-walled cysts throughout both kidneys are seen. There is 3.8 cm thin-walled cyst in the left kidney noted delayed axial image 34. No follow-up necessary. BOWEL: Oral contrast not reach level of terminal ileum. No abnormal small or large bowel dilatation. GENITAL ORGANS: No gross abnormality seen. LYMPH NODES: No greater than 1cm abdominal or pelvic lymph nodes are appreciated. OSSEOUS STRUCTURES: No significant abnormality is seen. OTHER: Stable right internal jugular Mediport catheter. IMPRESSION: No suspicious new mass or adenopathy is identified to suggest active neoplastic recurrenc e. No significant change from most recent prior PET/CT. [facility], , 07/30/2024 3:01 PM
== END | disposition home or self-care (01) ==
LOC: RADCTMAIN 09:25
PROVIDERS: ATTEND Internal Medicine Hematology & Oncology
DX: C15.5 Malignant neoplasm of lower third of esophagus (principal); E78.5 Hyperlipidemia, unspecified; D09.0 Carcinoma in situ of bladder; Z71.3 Dietary counseling and surveillance
CPT/HCPCS: 82565; 84520; 71260; 74177; 36415; Q9967